=== PATIENT | male | born 2000 | race Caucasian/White ===

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

== ENCOUNTER 2021-02-26 16:59 | Emergency (ER) | payer OTHER ==
[2021-02-27 15:54] LABS: SARS-CoV-2 PCR by NAA DETECTED (NotDetected)
== END 2021-02-26 17:12 | disposition home or self-care (01) ==
LOC: NAV ERS 16:59
DX: U07.1 COVID-19 (principal); E11.9 Type 2 diabetes mellitus without complications
CPT/HCPCS: 99283; U0003; U0005

== ENCOUNTER 2021-03-18 21:05 | Emergency (ER) | payer OTHER | END 2021-03-18 21:48 | disposition home or self-care (01) | LOC: NAV ERS 21:05 | DX: S63.601A Unspecified sprain of right thumb, initial encounter (principal); E11.9 Type 2 diabetes mellitus without complications; F17.220 Nicotine dependence, chewing tobacco, uncomplicated; W01.0XXA Fall on same level from slipping, tripping and stumbling without subsequent striking against object, initial encounter ==

== ENCOUNTER 2021-08-29 12:47 | Emergency (ER) | payer OTHER | END 2021-08-29 13:22 | disposition home or self-care (01) | LOC: NAV ERS 12:47 | DX: L03.031 Cellulitis of right toe (principal); E11.9 Type 2 diabetes mellitus without complications; F17.220 Nicotine dependence, chewing tobacco, uncomplicated; Z79.899 Other long term (current) drug therapy | CPT/HCPCS: 99283 ==

== ENCOUNTER 2022-05-08 12:52 | Emergency (ER) | payer OTHER ==
[2022-05-08] MEDS ORDERED: Ibuprofen 200 MG TAB ONE (13:20)
== END 2022-05-08 14:08 | disposition home or self-care (01) ==
LOC: NAV ERS 12:52
DX: S60.022A Contusion of left index finger without damage to nail, initial encounter (principal); E11.9 Type 2 diabetes mellitus without complications; F17.220 Nicotine dependence, chewing tobacco, uncomplicated; W23.0XXA Caught, crushed, jammed, or pinched between moving objects, initial encounter; Y92.69 Other specified industrial and construction area as the place of occurrence of the external cause; Z79.899 Other long term (current) drug therapy

== ENCOUNTER 2022-09-13 14:19 | Emergency (ER) | payer OTHER, SELFPAY | END 2022-09-13 15:45 | disposition home or self-care (01) | LOC: NAV ERS 14:19 | DX: S83.241A Other tear of medial meniscus, current injury, right knee, initial encounter (principal); W21.01XA Struck by football, initial encounter; F17.220 Nicotine dependence, chewing tobacco, uncomplicated ==

== ENCOUNTER 2023-02-23 15:39 | Emergency (ER) | payer SELFPAY ==
[2023-02-23] MEDS ORDERED: Ibuprofen 200 MG TAB ONE (15:52)
[2023-02-23] MEDS ORDERED: Lidocaine 1% (PF) 30 ML VIAL ONE (16:15)
== END 2023-02-23 17:04 | disposition home or self-care (01) ==
LOC: NAV ERS 15:39
DX: S62.306A Unspecified fracture of fifth metacarpal bone, right hand, initial encounter for closed fracture (principal); I10 Essential (primary) hypertension; E11.9 Type 2 diabetes mellitus without complications; F17.220 Nicotine dependence, chewing tobacco, uncomplicated; Y93.K9 Activity, other involving animal care; W22.8XXA Striking against or struck by other objects, initial encounter
CPT/HCPCS: 26605; J2001